=== PATIENT | female | born 1975 | race Hispanic/Latino ===

== ENCOUNTER 2018-02-12 12:22 | Outpatient (CLI) | payer BC | END 2018-02-12 12:23 | disposition home or self-care (01) | LOC: BICULT 12:22 | PROVIDERS: ATTEND Family Medicine | DX: A68.9 Relapsing fever, unspecified (principal) | CPT/HCPCS: 76770 ==

== ENCOUNTER 2018-04-07 13:06 | Outpatient (CLI) | payer BC | END 2018-04-07 13:07 | disposition home or self-care (01) | LOC: BICMAMMO 13:06 | PROVIDERS: ATTEND Obstetrics & Gynecology | DX: R92.2 Inconclusive mammogram (principal); N63.20 Unspecified lump in the left breast, unspecified quadrant | CPT/HCPCS: G0279 ==

== ENCOUNTER 2018-09-16 15:32 | Outpatient (CLI) | payer BC ==
--- NOTE | 2018-09-16 17:09 | MRI ---
MRI LUMBAR SPINE NONCONTRAST: 09/16/18 HISTORY: Low back pain. Left leg radiculopathy. FINDINGS: Vertebral body height and alignment are maintained. The conus medullaris has a normal appearance. Zoe tebral body heights and alignment are maintained. There is desiccation of the lowest two intervertebr al discs. T12-L1, L1-2, L2-3, and L3-4: Mild osteophytosis. Central canal and neural foramina are patent. L4-5: Mild posterior disc bulge with focal annular fissure posteriorly. Minimal effacement of the the don sac. Central canal and neural foraminal remain patent. L5-S1: Disc space narrowing. Very mild posterior disc bulge. Osteophytosis of the facets. Moderate ri ght and mild left foraminal stenoses. IMPRESSION: Posterior annular fissure within the L4-5 disc. Mild degenerative changes of the lower two levels, including foraminal stenoses bilaterally at the jessica mbosacral junction, right greater than left. Clinical correlation regarding the right L5 dermatome is required. POS: [facility]
== END 2018-09-16 15:33 | disposition home or self-care (01) ==
LOC: BICMRI 15:32
PROVIDERS: ATTEND Specialist
DX: M51.16 Intervertebral disc disorders with radiculopathy, lumbar region (principal); M47.26 Other spondylosis with radiculopathy, lumbar region; M48.061 Spinal stenosis, lumbar region without neurogenic claudication; M48.07 Spinal stenosis, lumbosacral region
CPT/HCPCS: 72148

== ENCOUNTER 2018-10-01 01:41 | Observation (INO) | payer BC ==
[2018-10-01 02:13] LABS: #Basophils 0.1 thou/uL (0.0-0.2); #Eosinphils 0.5 thou/uL (0.0-0.7); #Lymphocytes 2.8 thou/uL (1.20-3.40); #Monocytes 0.7 thou/uL (0.11-0.59); %Eosinophils 3.7 % (0.0-10.0); %Lymphocytes 21.1 % (21.0-51.0); %Monocytes 5.6 % (0.0-10.0); %Neutrophils 68.6 % (42.0-75.0); Hemoglobin 13.9 g/dL (12.0-16.0); Mean Corpuscular HGB CONC 33.7 g/dL (32.0-36.0); Mean Corpuscular Hemoglobin 29.7 pg (27.0-31.0); Mean Platelet Volume 7.2 fL (7.4-10.4); Platelet Count 265 thou/uL (130-400); RBC Distribution Width 13.2 % (11.5-14.5); White Blood Cell (WBC) Count 13.2 thou/uL (4.8-10.8)
[2018-10-01] MEDS ORDERED: Ketorolac Tromethamine 30 MG/ML VIAL ONE (02:20)
[2018-10-01 02:25] LABS: ALT (SGPT) 26 U/L (8-55); AST (SGOT) 18 U/L (5-34); Albumin 4.2 g/dL (3.5-5.0); Alkaline Phosphatase 98 U/L (40-150); Anion Gap 13 mmol/L (10-20); BUN (Urea Nitrogen) 14 mg/dL (7.0-18.7); Bilirubin, Total 0.2 mg/dL (0.2-1.2); Calc. Creatinine Clearance 0 mL/min (70-130); Calcium 9.5 mg/dL (7.8-10.44); Carbon Dioxide 27 mmol/L (22-29); Chloride 101 mmol/L (98-107); Estimated GFR-MDRD Greater than 90; Globulin 3.2 g/dL (2.4-3.5); Glucose 128 mg/dL (70-105); Lipase 55 U/L (8-78); Potassium 3.9 mmol/L (3.5-5.1); Protein, Total 7.4 g/dL (6.0-8.3); Sodium 137 mmol/L (136-145)
[2018-10-01 02:26] LABS: Bilirubin Negative (Negative); Blood, Urine Large (Negative); Clarity Clear (Clear); Glucose, Urine (Dipstick) Negative (Negative); Leukocyte Negative (Negative); Nitrite Negative (Negative); Protein, Urine (Dipstick) 100 mg/dL (Neg-Trace); Urobilinogen 0.2 mg/dL (0.2-1.0)
[2018-10-01 02:27] LABS: Pregnancy Test - Urine (BHCG) Negative (Negative); Pregu Control Background? CLEAR/WHITE (CLR/WHITE); Pregu Control Bar Appear? YES (CONTROL BAR); Specific Gravity 1.026 (1.002-1.036); Specific Gravity, Urine 1.026 (1.002-1.036)
[2018-10-01 02:30] LABS: Bacteria/HPF 2+ HPF (None Seen); Hyaline Casts/LPF 0-3 HYALINE CAST LPF (0-3 Hyaline); WBC/HPF 0-3 HPF (0-3)
[2018-10-01] MEDS ORDERED: Morphine 4 MG/ML VIAL ONE ×2 (03:05→04:38)
[2018-10-01] MEDS ORDERED: Sodium Chloride 0.9% 10 ML ONE ×2 (05:11→17:41)
[2018-10-01 05:19] VITALS: BMI 32.5
[2018-10-01] MEDS ORDERED: Ondansetron PF 4 MG/2 ML Vial IVP PRN (05:27)
[2018-10-01] MEDS ORDERED: Ondansetron ODT 4 MG TAB SL PRN (05:27)
[2018-10-01] MEDS ORDERED: Morphine 4 MG/ML VIAL SLOW IVP PRN (05:29)
[2018-10-01] MEDS: Sodium Chloride 0.9% 1,000 ML IV SCH ×2 (06:40→14:12)
--- NOTE | 2018-10-01 07:39 | CON ---
DATE OF CONSULTATION: 10/01/2018 REASON FOR CONSULTATION: Right ureteral stone. HISTORY OF PRESENT ILLNESS: Ms. Turner is a 43-year-old female patient of Dr. Alexander Molina. She has a history of urolithiasis requiring ureteroscopy with laser lithotripsy and stent placement in 2017. The patient is followed by Dr. Molina and saw him last approximately 4 months ago. Last night, she presented to the [facility] Emergency Department with acute onset of right-sided flank pain associated with nausea. The patient has had no fever or dysuria. A CT of the abdomen and pelvis was performed, which demonstrated a 12 mm proximal right ureteral calculus with significant hydroureteronephrosis. The patient's pain was poorly controlled and therefore, she was admitted to [facility] in [place]. Since then, the patient's pain has been better controlled. She has been n.p.o. No fever or chills. No other complaints at this time. REVIEW OF SYSTEMS: Full 12-point review of systems was performed and is negative other than that mentioned in HPI. PAST MEDICAL HISTORY: Urolithiasis, type 2 diabetes mellitus on metformin. PAST SURGICAL HISTORY: 1. . 2. Ureteroscopy with laser lithotripsy. 3. Laparoscopic cholecystectomy. ALLERGIES: COMPAZINE CAUSES VOMITING AND HIVES, AND PROCHLORPERAZINE AND SULFA, REACTION IS NAUSEA. SOCIAL HISTORY: No alcohol, tobacco, or drug use. FAMILY HISTORY: Noncontributory. CURRENT MEDICATIONS: Include metformin, Synthroid, and Effexor. PHYSICAL EXAMINATION: VITAL SIGNS: Blood pressure 122/72, pulse 82, respirations 17, temperature 97.1, oxygen saturation 99% on room air. GENERAL: She is alert and oriented x3, in no apparent distress. HEENT: Normocephalic and atraumatic. NECK: Supple. No masses or lymphadenopathy. CARDIOVASCULAR: Regular rate and rhythm. PULMONARY: Breathing unlabored. No wheezing. ABDOMEN: Soft, nontender/nondistended. No masses or organomegaly. No suprapubic tenderness to palpation. Mild right CVA tenderness. No left CVA tenderness. EXTREMITIES: Warm, well perfused. No edema. NEUROLOGIC: Alert and oriented x3, in no focal deficits. RADIOLOGY DATA: CT of the abdomen and pelvis was reviewed. See report for details. There is a 12 mm stone within the proximal right ureter and significant right hydroureteronephrosis down to the level of the stone. There was no other stone identified. LABORATORY DATA: White blood cell count 13.2, hemoglobin 13.9, hematocrit 41.4, and platelets 265. Chemistry; sodium 137, potassium 3.9, chloride 101, bicarb 27, BUN 14, creatinine 0.71, and glucose 128. ASSESSMENT: A 43-year-old female with right hydroureteronephrosis secondary to an obstructing 12 mm right proximal ureteral calculus with intractable pain. PLAN: I reviewed the natural history and clinical implications of ureteral stones with the patient in detail. I discussed the minimal chance of spontaneous passage of a stone by size. Currently, the patient's pain is better controlled. However, I explained the intervention would likely be necessary. I discussed options with the patient including right ureteral stent placement today and staged right extracorporeal shock wave lithotripsy versus right ureteroscopy with laser lithotripsy. I will discuss this with Dr. Molina as well given the fact that this is his active patient in all likelihood, right ureteral stent placement will be performed today by either myself or Dr. Molina and there will be staged definitive management of the stone in the future. Job ID: [id number]
[2018-10-01 08:40] LABS: Platelet Count 277 thou/uL (130-400)
[2018-10-01] MEDS ORDERED: CEFAZOLIN 2 GM in Premix Bag 1 BAG IVPB SCH (09:30)
--- NOTE | 2018-10-01 09:57 | CT ---
PRELIMINARY REPORT/[facility]/EMERGENTY AFTER-HOURS PROCEDURE CT Abdomen and Pelvis Without Contrast EXAM DATE/TIME: 10/01/2018 2:43 AM CLINICAL HISTORY: 43 years old, female; Pain; Abdominal pain; Prior surgery; Surgery date: 6+ months; Surgery type: Cho le; Patient HX: Right flank pain started at 2100 last night, denies n/v/d. H/o kidney stones. Surgica l history of cholecystectomy, TECHNIQUE: Axial computed tomography images of the abdomen and pelvis without contrast. Coronal reformatted images were created and reviewed. COMPARISON: No relevant prior studies available. FINDINGS: Lower thorax: No acute findings. ABDOMEN: Liver: Normal. No mass. Gallbladder and bile ducts: Prior cholecystectomy. Pancreas: Normal. No ductal dilation. Spleen: Normal. No splenomegaly. Adrenals: Normal. No mass. Kidneys and ureters: 1.2 cm obstructing stone in the proximal right ureter causing moderate obstructi ve uropathy. Nonobstructive nephrolithiasis left kidney. Stomach and bowel: No bowel wall thickening or intestinal obstruction. Appendix: Normal appendix. PELVIS: Bladder: Unremarkable as visualized. Reproductive: 2.9 cm right ovarian cyst. ABDOMEN and PELVIS: Intraperitoneal space: Normal. No free air. No significant fluid collection. Bones/joints: No acute fracture. No dislocation. Soft tissues: Unremarkable. Vasculature: Normal. No abdominal aortic aneurysm. Lymph nodes: Normal. No enlarged lymph nodes. IMPRESSION: 1. 1.2 cm obstructing stone in the proximal right ureter causing moderate obstructive uropathy. 2. 2.9 cm right ovarian cyst. Thank you for allowing us to participate in the care of your patient. Dictated and Authenticated by: Carloz Sr MD 10/01/2018 3:25 AM Central Time ([place] & [place]) FINAL REPORT CT ABDOMEN AND PELVIS NONCONTRAST: DATE: 10/01/2018. TIME: Performed on an emergency basis at 0245 hours. HISTORY: Right flank pain. FINDINGS: Agree with the preliminary report by Dr. Sr from [facility]. High-grade obstruction at a 1.2 cm proximal right ureteral calculus. Dominant right ovarian follicles. Lack of contrast limits evaluation for other abnormalities. Gallbladder is surgically absent. POS: [facility]
[2018-10-01] MEDS ORDERED: Fentanyl 100 MCG/2 ML VIAL ONE ×3 (10:54→13:48)
[2018-10-01] MEDS ORDERED: Midazolam HCl 2 mg/2 ml Vial ONE (10:54)
[2018-10-01] MEDS ORDERED: Iothalamate Meglumine 60% 50 ML VIAL FS ONE (12:10)
[2018-10-01] MEDS ORDERED: Ondansetron HCl/PF 4 MG/2 ML Vial IVP PRN (13:06)
[2018-10-01] MEDS ORDERED: Promethazine HCl 25 MG/ML VIAL IM PRN (13:06)
[2018-10-01] MEDS ORDERED: Promethazine HCl 25 MG/ML VIAL SLOW IVP PRN ×2 (13:06→16:04)
[2018-10-01] MEDS ORDERED: Ondansetron PF 4 MG/2 ML Vial ONE (14:13)
[2018-10-01] MEDS ORDERED: Lidocaine 1% PF 5 ML VIAL ONE (16:00)
[2018-10-01] MEDS ORDERED: PROPOFOL 200 MG/20 ML VIAL ONE (16:00)
[2018-10-01] MEDS ORDERED: PHENYLEPHRINE-NS 100 MCG/ML 10 ML SYRINGE ONE (16:00)
[2018-10-01] MEDS ORDERED: Succinylcholine Chloride 20 MG/ML 10 ml SYRINGE FS ONE (16:00)
[2018-10-01] MEDS ORDERED: [UNRECOGNIZED DRUG - REMARK] FS SCH (16:15)
--- NOTE | 2018-10-01 16:33 | ULT ---
RENAL ULTRASOUND BILATERAL WITH BRITO SCALE AND DOPPLER COLOR FLOW IMAGING 10/01/18 CLINICAL HISTORY: Shockwave lithotripsy procedure, followup. FINDINGS: There is no hydronephrosis of either kidney. Renal lengths are symmetric, 11.5 cm on the left and 12 cm on the right. No discrete renal parenchymal lesion. No shadowing nephrolithiasis is seen. Urinary bladder is decompressed limiting assessment. IMPRESSION: No overt hydronephrosis of either kidney. POS: [facility]
--- NOTE | 2018-10-01 17:00 | OP ---
DATE OF PROCEDURE: 10/01/2018 PREOPERATIVE DIAGNOSIS: Right proximal ureteral stone. POSTOPERATIVE DIAGNOSIS: Right proximal ureteral stone. PROCEDURE PERFORMED: Right extracorporeal shock wave lithotripsy, cysto, right stent. ANESTHETIC: General. ESTIMATED BLOOD LOSS: Minimal. FINDINGS: There was a 12 mm proximal right ureteral stone that was treated with 2500 shocks at a maximum kV level of 5 and majority of it at level 4. It did appear to fragment and change and actually when we did this cystoscopic procedure, we saw fragments already coming down into the bladder. She had a stent placed, 4.8 x 24 cm. There was still sizable remaining stone fragment at the ESWL site, which was very difficult to manipulate around. We had to use an angled Glidewire and was with some difficulty and she did have a small ureteral perforation at this site that will be managed currently with the stent indwelling. DESCRIPTION OF PROCEDURE: After obtaining written and verbal consent from the patient and after receiving IV antibiotics, she was taken to the operating suite. She was placed in the supine position on the treatment table. PlexiPulses were placed on her lower extremities and turned on. She was given a general anesthetic and oral obturator intubation. She was coupled to the lithotripsy unit. The stone was easily seen. The stone was placed in treatment focal point and shockwave therapy was commenced at a very low KUB at rate of 60. After couple of 100 shocks, a few minute pause was given. We then restarted ESWL going up to level 4. We stayed at level 4 to a couple of 1000 shocks were done and then we alternated between level 4 and 5 for the remaining 500. The stone did appear to change its configuration. She was then placed in dorsal lithotomy position, sterilely prepped and draped. Cystoscopy was performed with a 22-German sheath. This was well lubricated and passed under direct vision through the female urethra into the urinary bladder. There were some small stone fragments already exiting out, some blood in the bladder, this was rinsed out. A 5-German Pollack catheter was flushed with contrast and placed up the right ureter to just below the level of stone and contrast was injected. We could get contrast to go by the stone and the ureter was dilated above it. There was a lot of small fragments that appeared to migrate proximal when we injected the contrast, but there is still a stone fragment sitting right at this region. I could not get a guidewire by it. We brought in a straight Glidewire and felt like we gotten this by it but when shooting some contrast, saw that there was extravasation at the site where the stone was. Then, we re-tried with an angled Glidewire and we were able to manipulate this by the stone and then placed the open-ended catheter by the stone up into the dilated renal pelvis and drained the contrast from this. We then injected more contrast to fill out the upper collecting system, replaced a 0.038 guidewire through the open-ended catheter, then brought in a 4.8 double-J stent and placed it over the guidewire, pushing up into place with an aid of a pusher, so its proximal end coiled in the renal pelvis and its distal end coiled in the bladder when the wire was removed. The string was not left attached to it, it was a 24 cm stent. The bladder was drained and the instruments were removed. She was taken out of the dorsal lithotomy position. She was awakened, extubated, and taken by stretcher to the recovery room. We will plan on leaving the stent in for at least a couple of weeks and depending on whether she requires further treatment or not for the stone, but with the ureteral injury, she will need to be left in until the stone has gone and until good evidence of this is no longer an issue for her. Job ID: [id number]
[2018-10-01] MEDS ORDERED: Ondansetron ODT 4 MG TAB PO PRN (19:58)
[2018-10-01] MEDS ORDERED: Magnesium Citrate 300 ML BOT PO SCH (20:00)
--- NOTE | 2018-10-02 01:27 | CON ---
DATE OF CONSULTATION: 10/01/2018 REASON FOR CONSULTATION: Medical management. HISTORY OF PRESENT ILLNESS: This is a 43-year-old female patient with type 2 diabetes, hypothyroidism, depression and anxiety with history of kidney stones in the past, who presented to the emergency department yesterday with complaints of abdominal pain. CT of the abdomen was done, which revealed a large obstructing kidney stone in the order of 1.2 cm. She has had recurrent fever on and off for the past year with no origin. She was seen by Urology, who recommended lithotripsy and stent placement due to the size of her stone and the obstructing nature of it. She underwent the surgery with no complications by Dr. Molina and Dr. Jamison. Postoperative renal ultrasound showed no obstruction and no hydronephrosis. She continues to have pain from the stent and she has had constipation with no bowel movement for the past 2 days, as well as persistent nausea and vomiting. She is admitted overnight for observation. PAST MEDICAL HISTORY: History of nephrolithiasis, type 2 diabetes, hypertension, hyperlipidemia, hypothyroidism, depression, and anxiety. MEDICATIONS: Include: 1. Effexor daily. 2. Levothyroxine 75 mcg daily. 3. Metformin 1000 mg daily. PAST SURGICAL HISTORY: , ureteroscopy with laser lithotripsy, laparoscopic cholecystectomy. ALLERGIES: COMPAZINE AND SULFA. SOCIAL HISTORY: She is with children. No alcohol. No tobacco. No drug use. FAMILY HISTORY: Noncontributory. REVIEW OF SYSTEMS: GENERAL: As per the history of present illness, she denies any recent fevers or chills. HEENT: Denies headache, vision or hearing changes. CARDIAC: Denies chest pain or shortness of breath. PULMONARY: Denies cough or hemoptysis. GI: As per the history of present illness. No melena or hematochezia. : Denies dysuria or hematuria. NEUROLOGIC: No weakness, seizures, or syncope. PHYSICAL EXAMINATION: VITAL SIGNS: Temperature 98.5, pulse of 98, respirations 16, blood pressure 131/82, pulse ox 97% on room air. GENERAL: She is awake and alert. No acute distress. She appears uncomfortable. Mucosa is moist. NECK: Supple. HEART: Regular rate and rhythm. LUNGS: Clear. ABDOMEN: Diffusely tender. No rebound or guarding. EXTREMITIES: With no edema. LABORATORY DATA: White blood cell count 13,200, hemoglobin and hematocrit are 13.9 and 41.4, platelets of 262. Sodium 137, potassium 3.9, chloride 101, CO2 of 27, BUN and creatinine are 14 and 0.71 with a GFR of greater than 90. Serum glucose of 128, calcium of 9.5, AST and ALT are normal. Lipase of 55. Again, CT of the abdomen and pelvis revealed a 12 mm obstructing stone from last night. ASSESSMENT AND PLAN: 1. This is a 43-year-old female with a history of nephrolithiasis in the past, now status post obstructing 12 mm ureteral stone. She is now status post right extracorporeal shockwave lithotripsy with cystoscopy and right stent by Dr. Molina, which she tolerated well. Further plan per Urology. 2. Type 2 diabetes. We will restart metformin in the morning and continue Accu-Cheks through the night. 3. Bowel regimen. We will give a dose of mag citrate tonight and continue Colace daily as long as she is on narcotic pain medicines, Mag citrate p.r.n., increase water intake. 4. Anxiety and depression. We will restart her Effexor in the morning to prevent withdrawal symptoms. Job ID: [id number]
[2018-10-02] MEDS ORDERED: Levothyroxine Sodium 75 MCG TAB PO SCH (06:00)
[2018-10-02] MEDS ORDERED: metFORMIN 500 MG TAB PO SCH (08:00)
[2018-10-02] MEDS ORDERED: Venlafaxine XR 37.5 MG CAP PO SCH (09:00)
[2018-10-02] MEDS ORDERED: Docusate 100 MG CAP PO SCH (09:00)
[2018-10-02] MEDS ORDERED: Venlafaxine HCl XR 75 MG CAP PO SCH (09:00)
[2018-10-02] MEDS ORDERED: Polyethylene Glycol 3350 17 GM Packet PO PRN (09:59)
[2018-10-02] MEDS ORDERED: Acetaminophen/Codeine 30-300mg Tablet PO PRN (09:59)
[2018-10-02] MEDS ORDERED: CEFAZOLIN 2 GM in Premix Bag 1 BAG IVPB SCH (10:00)
[2018-10-02 11:04] LABS: Free T4 (Free Thyroxine) 1.36 ng/dL (0.70-1.48); Thyroid Stimulating Hormone 1.3478 uIU/mL (0.35-4.94)
[2018-10-02 12:02] VITALS: BP 123/80; TEMP 98.8
--- NOTE | 2018-10-02 14:17 | PRG ---
DATE OF SERVICE: 10/02/2018 SUBJECTIVE: The patient states she is feeling much better today. She has no flank pain. She is still having hematuria. She has some urgency and frequency. She denies any fevers or severe uncontrolled pain. OBJECTIVE: VITAL SIGNS: Temperature 98, pulse 93, respirations 18, blood pressure 123/80, and saturation 95% on room air. GENERAL: No apparent distress, communicating, and alert. CARDIOVASCULAR: Regular rate and rhythm. ABDOMEN: Soft, nontender, nondistended. Positive bowel sounds. EXTREMITIES: No clubbing, cyanosis, or edema. LABORATORY DATA: There are no new labs to review today. ASSESSMENT AND PLAN: A 43-year-old female, status post extracorporeal shock wave lithotripsy on the right with subsequent stent placement. She appears to be doing very well and I think she can be discharged home today. She can follow up with Dr. Molina as an outpatient for stent removal and subsequent followup to ensure that all stone fragments have cleared. I have gone over discharge instructions with her including care of her stent and avoiding significant postoperative pain or bleeding. Job ID: [id number]
--- NOTE | 2018-10-02 15:53 | PRG ---
DATE OF SERVICE: 10/02/2018 HISTORY OF PRESENT ILLNESS: The patient successfully underwent destruction of renal calculi with reported small tear in the ureter. Currently with stent placement by Dr. Alexander Molina, was given Ancef, was noted to have low colony-forming unit E coli on urine culture. After speaking with Dr. Alexander Kay, reported a desire for an additional unit of Ancef and will follow up in clinic. The patient was noted to have sulfa allergy. The patient's diabetes mellitus is controlled currently on home metformin. The patient has struggled with constipation over the last 6 months, has been stable on thyroid medication during this time, mood medication. The patient has not fully responded to intermittent attempts to relieve constipation. During hospital stay, has received magnesium citrate, MiraLAX, docusate sodium, had bowel movement within the last 2 days. Denies any significant left lower quadrant tenderness following procedure and bowel movement. PHYSICAL EXAMINATION: VITAL SIGNS: Temperature 98.8, pulse of 93, respiratory rate of 18, oxygen saturations 95% on room air, and blood pressure 123/80. Sensitivities pending for E coli on urine. GENERAL: The patient is alert and oriented. No acute distress. HEENT: Head is normocephalic and atraumatic. Extraocular movements are intact. Sclerae are white. Oral mucosa is moist. NECK: Supple. HEART: Regular rate and rhythm. No murmurs are auscultated. LUNGS: Clear to auscultation bilaterally. No rubs or wheezes. ABDOMEN: Soft, nontender. Positive bowel sounds throughout. EXTREMITIES: Lower extremities without cyanosis or edema. NEUROLOGIC: The patient is alert and oriented x3. No focal deficits. Speech is normal. The patient is anxious with slight lability in emotions, tearful at times, and anxious. ASSESSMENT AND PLAN: Renal calculi; urinary tract infection; chronic constipation; diabetes, type 2; hypothyroidism; depression and anxiety. Continue current medications. Gave reassurance regarding continued stent, we will hope repair of ureteral tear. Follow up with Urology, Dr. Molina on outpatient basis. Covering with Tylenol No. 3 for postoperative pain along with Senokot-S while on any narcotics. Discussed MiraLAX and Metamucil for more chronic basis over the next several months for constipation relief. Spot check thyroid, which was in acceptable limits. Follow up with the patient's PCP, Dr. Ck Camp upon discharge. Continue home medications for diabetes including metformin. Job ID: [id number]
[2018-10-02] MEDS ORDERED: Senokot S 8.6-50 MG TAB PO SCH (21:00)
--- NOTE | 2018-10-04 09:33 | DIS ---
DATE OF ADMISSION: 10/01/2018 DATE OF DISCHARGE: 10/02/2018 SHORT-STAY DISCHARGE SUMMARY: ADMITTING PHYSICIAN: Dr. Molina. ADMITTING DIAGNOSIS: Right proximal ureteral stone. DISCHARGE DIAGNOSIS: Right proximal ureteral stone. PROCEDURE PERFORMED: While inpatient; right extracorporeal shock wave lithotripsy with cystoscopy and right ureteral stent placement. BRIEF HISTORY: The patient is a 43-year-old female, who presented with a right-sided stone, measuring 12 mm. She is being brought in for shockwave lithotripsy and pain control. Full H and P can be found in the [facility] system. HOSPITAL COURSE: The patient underwent a successful shock wave lithotripsy (please see operative note for details). Postoperatively, she did have a lot of pain and requested to stay in the hospital overnight. She did very well overnight and her pain subsequently resolved. She is feeling much better and has requested to be discharged home. DISPOSITION: Discharged to home. DISCHARGE CONDITION: Good. DISCHARGE MEDICATIONS: Please see MAR. DISCHARGE INSTRUCTIONS: Include no heavy lifting or strenuous activity with the stent in. Stay adequately hydrated and expect intermittent hematuria. Followup will be with Dr. Molina for stent removal in approximately a week or so, which she will contact and arrange as an outpatient. Job ID: [id number]
== END 2018-10-02 14:21 | disposition home or self-care (01) ==
LOC: SCSER 01:41 → 3SE 04:36 → SJJU 18:11
PROVIDERS: ADMIT Urology; ATTEND Urology
PROC: 0TF6XZZ Fragmentation in Right Ureter, External Approach (ICD-10-PCS; principal; 2018-10-01)
PROC: 0T768DZ Dilation of Right Ureter with Intraluminal Device, Via Natural or Artificial Opening Endoscopic (ICD-10-PCS; 2018-10-01)
DX: N20.1 Calculus of ureter (principal); N39.0 Urinary tract infection, site not specified; B96.20 Unspecified Escherichia coli [E. coli] as the cause of diseases classified elsewhere; E11.9 Type 2 diabetes mellitus without complications; I10 Essential (primary) hypertension; E78.5 Hyperlipidemia, unspecified; E03.9 Hypothyroidism, unspecified; F41.8 Other specified anxiety disorders; K59.09 Other constipation; Z79.84 Long term (current) use of oral hypoglycemic drugs; Z79.899 Other long term (current) drug therapy; Z88.2 Allergy status to sulfonamides; Z88.8 Allergy status to other drugs, medicaments and biological substances
CPT/HCPCS: 36415; 36416; 74176; 76770; 80053; 81003; 81015; 81025; 83690; 84439; 84443; 84481; 85025; 85576; 87077; 87086; 87186; 90471; 90686; 96361; 96365; 96374; 96375; 96376; C1758; C1769; G0008; G0378; J1885; J2001; J2250; J2270; J2405; J2550; J2704; J3010; Q0162; Q9961

== ENCOUNTER 2018-10-20 07:07 | Day surgery (SDC) | payer BC ==
[2018-10-19 13:20] VITALS: BMI 32.5
--- NOTE | 2018-10-20 08:58 | RAD ---
SUPINE ABDOMEN: Indications: Pre-operative evaluation. Comparison: 10-18-18 FINDINGS: Double pigtail right ureteral stent remains in place. The calculus adjacent to the proximal stent reg ion of the renal pelvis is unchanged in position when compared to 10-18-18. Bowel gas pattern is unremarkable. IMPRESSION: No change in position of the calculus overlying the region of the right UPJ or proximal right ureter when compared to exam of 10-18-18. POS: [facility]
[2018-10-20] MEDS ORDERED: Midazolam HCl 2 mg/2 ml Vial ONE (09:43)
[2018-10-20] MEDS ORDERED: ceFAZolin Sodium 2 GM/100 ML BAG ONE (09:43)
[2018-10-20] MEDS ORDERED: Famotidine/PF 20 mg/2ml Vial ONE (09:45)
[2018-10-20] MEDS ORDERED: Fentanyl 100 MCG/2 ML VIAL ONE (09:45)
[2018-10-20] MEDS ORDERED: Promethazine HCl 25 MG/ML VIAL ONE (11:10)
--- NOTE | 2018-10-20 11:34 | OP ---
DATE OF PROCEDURE: 10/20/2018 PREOPERATIVE DIAGNOSIS: Right proximal ureteral stone. PROCEDURE PERFORMED: Right extracorporeal shock wave lithotripsy. ANESTHETIC: General. ESTIMATED BLOOD LOSS: Not recorded. FINDINGS: Stone fragments in the proximal right ureter probably large size measuring 1.5 cm. These were treated with 2500 shocks at level 5 and level 6. A stent was already in place. This was not removed or replaced, but was left in. OPERATIVE TECHNIQUE: Obtained written and verbal consent from the patient after receiving some IV Ancef. She was taken to the operating suite. She was placed in supine position on the treatment table. PlexiPulses were placed on her lower extremities and turned on. She was given a general anesthetic and oral obturator intubation. She was coupled to the lithotripsy unit. The stone was placed in treatment focal point and shockwave therapy was commenced. After couple of 100 shocks, a 5 minute pause was given. We then increased the kV to 4 and then to 5 and for the last 1000 shocks went between level 5 and level 6. 50 to 100 shocks, going back and forth until we had completed 2500. The stone did appear to spread out. It did appear to smudge on the edges suggesting it did fragment. It was in about three pieces when we started the procedure from a prior shock wave. After 2500 shocks, the procedure was terminated. She was awakened, extubated, taken by hanna to recovery room. Job ID: [id number]
[2018-10-20] MEDS ORDERED: PROPOFOL 200 MG/20 ML VIAL ONE (15:13)
[2018-10-20] MEDS ORDERED: Ketorolac Tromethamine 30 MG/ML VIAL ONE (15:13)
[2018-10-20] MEDS ORDERED: Ondansetron PF 4 MG/2 ML Vial ONE (15:13)
[2018-10-20] MEDS ORDERED: Lidocaine 1% PF 5 ML VIAL ONE (15:13)
[2018-10-20] MEDS ORDERED: Metoclopramide HCl 10 MG/2 ML VIAL ONE (15:13)
== END 2018-10-20 13:10 | disposition home or self-care (01) ==
LOC: SDC 07:07
PROVIDERS: ATTEND Urology
PROC: 0TF6XZZ Fragmentation in Right Ureter, External Approach (ICD-10-PCS; principal; 2018-10-20)
DX: N20.1 Calculus of ureter (principal); E03.9 Hypothyroidism, unspecified; E11.9 Type 2 diabetes mellitus without complications; Z88.2 Allergy status to sulfonamides; Z88.8 Allergy status to other drugs, medicaments and biological substances; Z79.2 Long term (current) use of antibiotics; Z79.84 Long term (current) use of oral hypoglycemic drugs; Z79.899 Other long term (current) drug therapy; Z98.890 Other specified postprocedural states
CPT/HCPCS: 74018; J0131; J0690; J1885; J2001; J2250; J2405; J2550; J2704; J2765; J3010; S0028

== ENCOUNTER 2019-02-05 01:08 | Emergency (ER) | payer BC ==
[2019-02-05] MEDS ORDERED: Loperamide HCl 2 MG CAP ONE ×2 (01:38→01:54)
[2019-02-05] MEDS ORDERED: Ondansetron PF 4 MG/2 ML Vial ONE (01:38)
[2019-02-05] MEDS ORDERED: Ketorolac Tromethamine 30 MG/ML VIAL ONE (01:38)
[2019-02-05 02:12] LABS: #Basophils 0.1 thou/uL (0.0-0.2); #Eosinphils 0.2 thou/uL (0.0-0.7); #Lymphocytes 1.4 thou/uL (1.20-3.40); #Monocytes 0.4 thou/uL (0.11-0.59); #Neutrophils 11.5 thou/uL (1.40-6.50); %Eosinophils 1.3 % (0.0-10.0); %Lymphocytes 10.5 % (21.0-51.0); %Monocytes 3.2 % (0.0-10.0); %Neutrophils 83.9 % (42.0-75.0); BHCG - Serum Negative (NEGATIVE); Hemoglobin 15.5 g/dL (12.0-16.0); Mean Corpuscular HGB CONC 34.6 g/dL (32.0-36.0); Mean Corpuscular Hemoglobin 28.9 pg (27.0-31.0); Mean Corpuscular Volume 83.6 fL (78.0-98.0); Mean Platelet Volume 5.2 fL (7.4-10.4); Platelet Count 249 thou/uL (130-400); Pregs Control Background? CLEAR/WHITE (CLR/WHITE); Pregs Control Bar Appear? YES (CONTROL BAR); RBC Distribution Width 14.3 % (11.5-14.5); Red Blood Cell (RBC) Count 5.35 mill/uL (4.20-5.40); White Blood Cell (WBC) Count 13.7 thou/uL (4.8-10.8)
[2019-02-05 03:18] LABS: ALT (SGPT) 35 U/L (8-55); AST (SGOT) 33 U/L (5-34); Albumin 4.5 g/dL (3.5-5.0); Alkaline Phosphatase 95 U/L (40-150); BUN (Urea Nitrogen) 16 mg/dL (7.0-18.7); Bilirubin, Total Less than 0.2 mg/dL (0.2-1.2); Calc. Creatinine Clearance 0 mL/min (70-130); Carbon Dioxide 18 mmol/L (22-29); Estimated GFR-MDRD Greater than 90; Globulin 3.5 g/dL (2.4-3.5); Glucose 219 mg/dL (70-105); Lipase 40 U/L (8-78)
[2019-02-05 03:37] LABS: Chloride 101 mmol/L (98-107); Potassium 3.8 mmol/L (3.5-5.1); Sodium 136 mmol/L (136-145)
[2019-02-05 03:38] LABS: Calcium 9.5 mg/dL (7.8-10.44)
[2019-02-05 03:40] LABS: Anion Gap 22 mmol/L (10-20)
[2019-02-05] MEDS ORDERED: Morphine 4 MG/ML VIAL ONE (04:26)
[2019-02-05 04:34] LABS: Bilirubin Negative (Negative); Blood, Urine Trace (Negative); Clarity Clear (Clear); Glucose, Urine (Dipstick) Negative (Negative); Leukocyte Negative (Negative); Nitrite Negative (Negative); Protein, Urine (Dipstick) Negative (Neg-Trace); Urobilinogen 0.2 mg/dL (0.2-1.0)
[2019-02-05 04:41] LABS: Bacteria/HPF 1+ HPF (None Seen); RBC/HPF 0-3 HPF (0-3); Squamous Epithelial 0-3 HPF (0-3); WBC/HPF 0-3 HPF (0-3)
[2019-02-05] MEDS ORDERED: Metoclopramide HCl 10 MG/2 ML VIAL ONE (05:02)
[2019-02-05 05:13] LABS: Anion Gap 17 mmol/L (10-20); BUN (Urea Nitrogen) 11 mg/dL (7.0-18.7); Calc. Creatinine Clearance 0 mL/min (70-130); Calcium 7.8 mg/dL (7.8-10.44); Carbon Dioxide 20 mmol/L (22-29); Chloride 111 mmol/L (98-107); Estimated GFR-MDRD Greater than 90; Glucose 145 mg/dL (70-105); Potassium 4.6 mmol/L (3.5-5.1); Sodium 143 mmol/L (136-145)
--- NOTE | 2019-02-05 09:38 | CT ---
PRELIMINARY REPORT/[facility]/EMERGENCY AFTER HOURS PROCEDURE: EXAM: CT Abdomen and Pelvis Without Contrast EXAM DATE/TIME: 02/05/2019 2:51 AM CLINICAL HISTORY: 43 years old, female; Nausea and vomiting; Abdominal pain; Generalized; Patient HX : N/v/d due to possible food poisoning. Hs of cheryl, renal stones, hs of litho four months ago due to 12mm right renal stone. TECHNIQUE: Imaging protocol: Axial computed tomography images of the abdomen and pelvis without cont rast. Coronal and sagittal reformatted images were created and reviewed. Radiation optimization: All CT scans at this facility use at least one of these dose optimization techniques: automated exposure control; mA and/or kV adjustment per patient size (includes targeted exams where dose is matched to c linical indication); or iterative reconstruction. COMPARISON: No relevant prior studies available. FINDINGS: Lungs: The lung bases are clear. Liver: Unremarkable. Gallbladder and bile ducts: Prior cholecystectomy, no significant biliary tree dilation. Pancreas: Unremarkable. Spleen: Unremarkable. Adrenals: Unremarkable. Kidneys and ureters: Right lower pole intrarenal calculus. Mild right hydronephrosis and hydroureter. There is a 5 x 7 mm mid to distal right ureteral calculus. The calculus lies at the level of S2. Left upper pole intrarenal calculus. Left kidney otherwise appears essentially unremarkable. Stomach and bowel: There are no CT findings to strongly suggest diverticulitis. Appendix: The appendix is probably identified, and there are no suspicious findings for appendicitis. No pericecal inflammatory changes are seen. Intraperitoneal space: No free air, ascites, or significant bowel distention. Vasculature: No evidence for abdominal aortic aneurysm. Lymph nodes: No retroperitoneal adenopathy. Bladder: Unremarkable as visualized. Reproductive: The left ovary probably contains a 17 mm dominant follicle versus very small cyst. Significance uncertain/unlikely due to relatively small size. No cul-de-sac fluid. Bones/joints: No significant acute finding. Soft tissues: No significant acute finding. IMPRESSION: 1. 5 x 7 mm mid to distal right ureteral calculus, see above details. 2. Mild right hydronephrosis and hydroureter. 3. Small intrarenal calculus bilaterally. 4. No free air or significant bowel distention. No evidence to suggest bowel obstruction. 5. No CT findings to suggest appendicitis. 6. The left ovary probably contains a 17 mm dominant follicle versus very small cyst. Significance un certain/unlikely due to relatively small size. No cul-de-sac fluid. 7. Other findings discussed above. Thank you for allowing us to participate in the care of your patient. Dictated and Authenticated by: Khalif Nixon MD 02/05/2019 4:25 AM Central Time ([place] & [place]) FINAL REPORT ABDOMEN CT WITHOUT CONTRAST PELVIC CT WITHOUT CONTRAST: Date: 02/05/19 HISTORY: Abdominal pain. Vomiting. History of urolithiasis. COMPARISON: 10/01/18. FINDINGS: Limited evaluation of solid organs due to technique. Grossly no solid organ abnormality. There is a n onobstructing 3 mm calculus in the right intrarenal collecting system. There is interval passage of a right ureteral calculus, now in the mid portion of the right ureter. Calculus measures 0.9 cm. Nonob structing punctate 1.0 mm calculus in the left intrarenal collecting system. Hypodensity associated with the left ovary measuring 2.0 cm, likely representing a dominant follicle. IMPRESSION: This report is in agreement with the preliminary report by [facility]. 1. Right-sided obstructive uropathy secondary to a calculus in the right ureter. 2. Dominant follicle in the left ovary. POS: OFF
== END 2019-02-05 05:29 | disposition home or self-care (01) ==
LOC: SCSER 01:08
DX: N13.2 Hydronephrosis with renal and ureteral calculous obstruction (principal); E86.0 Dehydration; E11.9 Type 2 diabetes mellitus without complications; E03.9 Hypothyroidism, unspecified; K58.9 Irritable bowel syndrome, unspecified; F32.9 Major depressive disorder, single episode, unspecified; Z79.84 Long term (current) use of oral hypoglycemic drugs; Z79.899 Other long term (current) drug therapy
CPT/HCPCS: 36415; 74176; 80053; 81003; 81015; 83605; 83690; 84703; 85025; 87086; 96361; 96365; 96375; J1885; J2270; J2405; J2765

== ENCOUNTER 2019-06-06 06:18 | Day surgery (SDC) | payer BC, OTHER ==
[2019-05-20 10:37] VITALS: BMI 32.9
[2019-06-06] MEDS ORDERED: Fentanyl 100 MCG/2 ML VIAL ONE ×2 (06:58→08:45)
[2019-06-06] MEDS ORDERED: Midazolam HCl 2 mg/2 ml Vial ONE (06:58)
[2019-06-06 07:03] LABS: #Basophils 0.1 thou/uL (0.0-0.2); #Eosinphils 0.6 thou/uL (0.0-0.7); #Lymphocytes 3.1 thou/uL (1.20-3.40); #Monocytes 0.6 thou/uL (0.11-0.59); #Neutrophils 6.2 thou/uL (1.40-6.50); %Basophils 0.7 % (0.0-1.0); %Lymphocytes 29.4 % (21.0-51.0); %Monocytes 5.3 % (0.0-10.0); %Neutrophils 58.6 % (42.0-75.0); Hemoglobin 13.9 g/dL (12.0-16.0); Mean Corpuscular HGB CONC 33.1 g/dL (32.0-36.0); Mean Corpuscular Hemoglobin 29.1 pg (27.0-31.0); Mean Corpuscular Volume 88.1 fL (78.0-98.0); Mean Platelet Volume 7.3 fL (7.4-10.4); Platelet Count 323 thou/uL (130-400); RBC Distribution Width 12.7 % (11.5-14.5); Red Blood Cell (RBC) Count 4.77 mill/uL (4.20-5.40); White Blood Cell (WBC) Count 10.5 thou/uL (4.8-10.8)
[2019-06-06] MEDS ORDERED: Iothalamate Meglumine 60% 50 ML VIAL FS ONE (07:12)
[2019-06-06 07:25] LABS: Anion Gap 14 mmol/L (10-20); BUN (Urea Nitrogen) 15 mg/dL (7.0-18.7); Calc. Creatinine Clearance 137 mL/min (70-130); Calcium 9.4 mg/dL (7.8-10.44); Carbon Dioxide 25 mmol/L (22-29); Chloride 101 mmol/L (98-107); Estimated GFR-MDRD Greater than 90; Glucose 135 mg/dL (70-105); Potassium 3.7 mmol/L (3.5-5.1); Sodium 136 mmol/L (136-145)
--- NOTE | 2019-06-06 07:59 | RAD ---
KUB: 06/06/2019 COMPARISON: 05/05/2019 HISTORY: Preoperative patient, history of right-sided ureteral calculus FINDINGS: Clips in the right upper quadrant suggest prior cholecystectomy. No upper abdominal calcifi cations are noted. The bowel gas pattern is nonobstructed. There is a calcification in the right hemipelvis measuring 7-8 mm in craniocaudal dimension. This has progressed distally slightly when compared to the prior examination, now projecting approximately 2-3 cm below the level of the right sacroiliac joint. IMPRESSION: 7-8 mm calcification within the right hemipelvis suggesting a distal right ureteral calcu bryan.
--- NOTE | 2019-06-06 11:01 | OP ---
DATE OF PROCEDURE: 06/06/2019 PREOPERATIVE DIAGNOSIS: Right distal ureteral stone. POSTOPERATIVE DIAGNOSIS: Right distal ureteral stone. PROCEDURES PERFORMED: Cystoscopy, right retrograde, and right stent. ANESTHETIC: General. EBL: Minimal. FINDINGS: There was an impacted 6 mm right lower third ureteral stone that was difficult to pass with a guidewire and was felt to be impacted. For this reason, ureteroscopy was not done. DRAINS PLACED: A 4.8 x 24 cm double-J stent without a string attached. INDICATIONS FOR SURGERY: This is a 44-year-old female, who has had asymptomatic right ureteral stone for a few weeks now and then, we had her set up to come in to have this procedure done and just in the last few days, she has been having a great deal of pain from it. Her KUB today shows that it has moved down probably 4 or 5 cm more, it was over the sacrum, so she is coming in now for ureteroscopy and stone lithotripsy and retrieval. DESCRIPTION OF PROCEDURE: Obtained written and verbal consent from the patient, after receiving IV Ancef, she was taken to the operating suite. She was placed in supine position on the treatment table. PlexiPulses were placed on her lower extremities and turned on. She was given a general anesthetic and oral obturator intubation, placed in the dorsal lithotomy position, sterilely prepped and draped. Cystoscopy was performed with a 22-Mauritanian sheath, this was well lubricated and passed under direct vision through the female urethra into the urinary bladder with the aid of a 30-degree lens and a video camera and monitor. The bladder was filled and emptied number of times. A 0.038 guidewire was placed inside of a Pollack catheter and placed into the right ureteral orifice and up to the level of the stent. The wire would not go by it. We then shot some contrast through this and got a little bit of contrast to go by it, but not that much. We then brought in both an angled and then a straight tipped Glidewire and we could not get the angle to go by and we shot some more contrast up. There was no extravasation and then, we were able to get the straight Glidewire by it. We then were able to push the five-Mauritanian [place] catheter over the wire, it was a little difficult getting by the stone also, but it did and then got up into the upper collecting system and we filled up the system, which was hydronephrotic. It was drained relatively clear urine. No evidence of infection at least. There were some blood in it. We then replaced through the open-ended catheter, a 0.038 guidewire and then brought in a 4.6 x 24 cm double-J stent, placed it over the guidewire, pushing up into place with aid of a pusher, so its proximal end coiled in the renal pelvis and its distal end coiled in the bladder when the wire was removed. The string about an inch long was left just on the end of the stent to help in retrieving it, but it was not coming out of the urethral meatus. I did not do ureteroscopy because the stone was impacted, we got the stents to end, but the ureter dilate and if she has not passed a stone in the next couple weeks, do ureteroscopy then. She was awakened, extubated, and taken by stretcher to the recovery room. Job ID: [id number]
== END 2019-06-06 10:24 | disposition home or self-care (01) ==
LOC: SDC 06:18
PROVIDERS: ATTEND Urology
PROC: 0T768DZ Dilation of Right Ureter with Intraluminal Device, Via Natural or Artificial Opening Endoscopic (ICD-10-PCS; principal; 2019-06-06)
PROC: BT1D1ZZ Fluoroscopy of Right Kidney, Ureter and Bladder using Low Osmolar Contrast (ICD-10-PCS; principal; 2019-06-06)
DX: N13.2 Hydronephrosis with renal and ureteral calculous obstruction (principal); Z88.2 Allergy status to sulfonamides; Z88.8 Allergy status to other drugs, medicaments and biological substances; Z79.899 Other long term (current) drug therapy
CPT/HCPCS: 74018; 76000; 80048; 85025; C1758; C1769; J0690; J2250; J3010

== ENCOUNTER 2019-06-20 10:54 | Day surgery (SDC) | payer BC, OTHER ==
[2019-06-17 12:04] VITALS: BMI 32.3
[2019-06-20] MEDS ORDERED: Ondansetron PF 4 MG/2 ML Vial ONE (11:03)
[2019-06-20] MEDS ORDERED: Dexamethasone 20 MG/5 ML VIAL ONE (11:03)
[2019-06-20] MEDS ORDERED: PROPOFOL 200 MG/20 ML VIAL ONE (11:03)
[2019-06-20] MEDS ORDERED: Iothalamate Meglumine 60% 50 ML VIAL FS ONE (11:23)
[2019-06-20 11:36] LABS: #Basophils 0.1 thou/uL (0.0-0.2); #Eosinphils 0.5 thou/uL (0.0-0.7); #Monocytes 0.5 thou/uL (0.11-0.59); #Neutrophils 7.1 thou/uL (1.40-6.50); %Basophils 0.7 % (0.0-1.0); %Eosinophils 4.8 % (0.0-10.0); %Lymphocytes 19.6 % (21.0-51.0); %Monocytes 4.6 % (0.0-10.0); %Neutrophils 70.3 % (42.0-75.0); Hemoglobin 13.7 g/dL (12.0-16.0); Mean Corpuscular HGB CONC 33.9 g/dL (32.0-36.0); Mean Corpuscular Hemoglobin 29.6 pg (27.0-31.0); Mean Corpuscular Volume 87.5 fL (78.0-98.0); Mean Platelet Volume 6.9 fL (7.4-10.4); Platelet Count 290 thou/uL (130-400); RBC Distribution Width 12.7 % (11.5-14.5); Red Blood Cell (RBC) Count 4.62 mill/uL (4.20-5.40); White Blood Cell (WBC) Count 10.2 thou/uL (4.8-10.8)
--- NOTE | 2019-06-20 11:48 | RAD ---
Radiograph abdomen one view: DATE: 06/20/2019 HISTORY: 44 year old female with urolithiasis, calculus of right ureter COMPARISON: 06/04/2019. FINDINGS: The 9 x 7 mm calculus in the distal right ureter, at the lower sacral level, is unchanged in position . There is a new right ureteral stent. Bowel gas pattern is normal. IMPRESSION: 1. New right ureteral stent. 2. No change in position of the 9 mm right distal ureteral calculus.
[2019-06-20] MEDS ORDERED: Fentanyl 250 MCG/5 ML VIAL ONE (12:21)
[2019-06-20 12:25] LABS: Anion Gap 14 mmol/L (10-20); BUN (Urea Nitrogen) 10 mg/dL (7.0-18.7); Calc. Creatinine Clearance 147 mL/min (70-130); Calcium 9.4 mg/dL (7.8-10.44); Carbon Dioxide 26 mmol/L (22-29); Chloride 102 mmol/L (98-107); Estimated GFR-MDRD Greater than 90; Glucose 136 mg/dL (70-105); Potassium 3.8 mmol/L (3.5-5.1); Sodium 138 mmol/L (136-145)
[2019-06-20] MEDS ORDERED: Midazolam HCl 2 mg/2 ml Vial ONE (12:31)
[2019-06-20] MEDS ORDERED: Fentanyl 100 MCG/2 ML VIAL ONE (14:53)
[2019-06-20] MEDS ORDERED: Morphine 2 MG/ML SYRINGE ONE (16:20)
--- NOTE | 2019-06-20 16:36 | OP ---
DATE OF PROCEDURE: 06/20/2019 PREOPERATIVE DIAGNOSES: Right ureteral stone, it is in the junction of the upper 2/3rds and the lower third of the right ureter. PROCEDURES PERFORMED: Cysto, discontinue right stent, right rigid use ureteroscopy with laser lithotripsy and right rigid stone retrieval, and right stent replacement. ANESTHETIC: General. EBL: Minimal. DRAINS PLACED: A 6 x 24 Polaris double-J stent. The string was not left intact. FINDINGS: The distal third of the ureters was normal. The stone was impacted at the junction of the distal third and the proximal 2/3rds. Ureter was very irregular around it. It was lateral to the guidewire. We used a small caliber holmium laser fiber to break this into small pieces that we were able to basket out. As we had finished getting this treated, looking at it, you could see the guidewire that had been placed through the stent at the start of the case was not in the same lumen as where the stone was suggesting either that guidewire had been submucosal just adjacent to the stone or that the stone itself had become impact enough that was actually outside the lumen. There is certainly a very irregular ureter in this region. We could not get our small caliber rigid ureteroscope to follow the guidewire through this location. It was very, very narrowed here. We placed a second guidewire across, where the stone was as this did connect to the ureter just proximal to this and this proximal meaning just a couple of millimeters. Then having a guidewire up on both of these locations, we were able to use the laser just connect them by this opening up a couple millimeters of tissue in length and probably no more than a millimeter in thickness, where these two had . Once this was completed, then we placed the stent across the guidewire. Guidewire that had that which was now inside of which was now completely inside of these lumens as they had been connected as one. DESCRIPTION OF PROCEDURE: Obtained written and verbal consent from the patient, after receiving IV antibiotics, she was taken to the operating suite. She was placed in a supine position on the treatment table. PlexiPulses were placed on her lower extremities and turned on. She was given a general anesthetic and oral obturator intubation, placed in the dorsal lithotomy position, sterilely prepped and draped. Cystoscopy was performed with a 22-Telugu sheath, this was well lubricated, passed under direct vision through the female urethra into the urinary bladder with the aid of a 30-degree lens and video camera and monitor. The scope was passed into the bladder. The bladder was filled and emptied number times. Distal end of double-J stent was grasped and brought out through the urethral meatus. A guidewire was fed up through this and the stent was removed leaving guidewire in place. We then brought in a small caliber graduated rigid ureteroscope and passed through the female urethra with aid of video camera and monitor, passed up the right ureter to the level of stone. There was a lot of inflammatory tissue, inflammatory changes noted in this region, but then stone was well visualized, brought in a small caliber holmium laser fiber. The stone was lateral to the guidewire. We broke the stone up into small pieces and as they fell out, they moved distally down the ureter. Once the stone was completely broken up, then we went ahead and basketed out these pieces dropping them in the bladder. We then reinspected this region and at this point, noted that the guidewire that had been placed through the stent at the beginning of the case was in a different lumen than the stone had been in the lumen. The stone had been actually did connect to the proximal ureter. There was a just tiny bit of tissue probably a couple millimeter in length and maybe a millimeter in thickness that these two lumens there. We went ahead and brought in the laser fiber and we just opened up this little bit of tissue that between these 2-0 has to take it from two lumens to one lumen. We tried to initially just go across this lumen that the guidewire was in by backloading the guidewire through the ureteroscope. We will get up to this point, which is very tight. I am not sure whether the stone itself was just outside of the ureter on the side, where it had been impacted, which would be the lateral part of the ureteral orifice or if the guidewire that had been placed through the stent at the beginning of this case was just slightly submucosal. When we passed this wire a couple weeks ago and put the stent in, it was very difficult to get by the stone. The stone was very tight and impacted, so it could have been one or the other. In any event, once this was completed and we had joined these two lumens, we left one guidewire across it and then brought in a 5-Telugu Pollack catheter passed over the guidewire up into the renal pelvis, removed the guidewire injected about 20 mL of contrast. She is mildly hydronephrotic, but the urine went all the way down the ureter into the bladder and there was no extravasation noted. We then went ahead and replaced the guidewire through the open-ended catheter, removed that catheter and passed a 6 x 24 Polaris double-J stent over the guidewire pushing up easily into place and set the proximal end coiled in the renal pelvis and the distal end coiled in the bladder when the wire was removed. The stones had been retrieved from the ureter with a Nitinol basket. I had just been dropped into the bladder. We will let her pass those on her own at home. We sent stones off and on her before, so we do not need to collect these for stone analysis. She at this point was awakened and extubated, taken by stretcher to recovery room. Job ID: [id number]
== END 2019-06-20 16:55 | disposition home or self-care (01) ==
LOC: SDC 10:54
PROVIDERS: ATTEND Urology
PROC: 0TF68ZZ Fragmentation in Right Ureter, Via Natural or Artificial Opening Endoscopic (ICD-10-PCS; principal; 2019-06-20)
PROC: 0T768DZ Dilation of Right Ureter with Intraluminal Device, Via Natural or Artificial Opening Endoscopic (ICD-10-PCS; principal; 2019-06-20)
DX: N20.1 Calculus of ureter (principal); E11.9 Type 2 diabetes mellitus without complications; F41.9 Anxiety disorder, unspecified; Z88.8 Allergy status to other drugs, medicaments and biological substances; Z88.2 Allergy status to sulfonamides; Z79.84 Long term (current) use of oral hypoglycemic drugs
CPT/HCPCS: 36415; 74018; 74420; 80048; 85025; C1758; J0690; J1100; J2250; J2270; J2405; J2704; J3010

== ENCOUNTER 2020-06-12 09:58 | Outpatient (CLI) | payer BC ==
--- NOTE | 2020-06-12 13:48 | RAD ---
LUMBAR SPINE SERIES 4 VIEWS: Date: 06/12/2020 HISTORY: Back and bilateral leg pain. FINDINGS: Vertebral bodies are normal in height. Severe disc narrowing and vacuum disc phenomenon at L5-S1. No spondylolisthesis. No abnormal motion on the flexion or extension views. Pedicles are intact. IMPRESSION: Marked degenerative disc narrowing at L5-S1. POS: TIKA
--- NOTE | 2020-06-12 14:41 | MRI ---
MRI LUMBAR SPINE NONCONTRAST: DATE: 06/12/20 HISTORY: 45-year-old female with M54.16 lumbar radiculopathy, and low back pain. COMPARISON: 09/16/18 FINDINGS: There are five lumbar type vertebrae. Vertebral body heights are maintained. Conus medullaris termina robin at L2. No high grade scoliosis. All levels from T12-L1 through L3-4, are normal. L4-5: disc desiccation and mild disc space narrowing. Superimposed on a mild diffuse disc bulge, ther e is a central and bilateral paracentral broad based shallow disc protrusion which minimally indents the ventral aspect of the thecal sac and abuts the right L5 nerve root without displacing it. This do es not cause significant central spinal canal stenosis. There is no significant neural foraminal sten osis. Degenerative facet changes are mild. L5-S1: Moderate to severe disc space narrowing. Multifocal end plate irregularities. Prominent Modic type I end plate marrow edema. Slight grade I anterolisthesis of L5 on S1. Diffuse disc bulge. Mild b ilateral facet DJD. No central spinal canal stenosis. Central and bilateral paracentral broad based s hallow disc herniation abuts the ventral surface of the thecal sac and abuts the bilateral S1 nerve r oots at the lateral recesses without significant displacing them and without causing high grade centr al spinal canal stenosis. The size of this shallow disc herniation may or may not be slightly larger than on the previous MRI. Bilateral moderate neural foraminal stenosis, right greater than left, has not significantly changed. There is distortion of the exiting right L5 nerve root in the right neural foramen by the right lateral and far lateral chronic disc/osteophyte complex. This has not changed. IMPRESSION: 1. Somewhat severe degenerative disc disease at L5-S1, where there is mild grade I spondylolisth esis and moderate bilateral neural foraminal stenosis, right worse than left. 2. Mild to moderate degenerative disc disease at L4-5. 3. All the rest of the levels are normal. 4. No central spinal canal stenosis at any level. OBIE Beavers POS: LAMINEC
== END 2020-06-12 09:59 | disposition home or self-care (01) ==
LOC: BICMRI 09:58
PROVIDERS: ATTEND Surgery
DX: M48.061 Spinal stenosis, lumbar region without neurogenic claudication (principal); M51.16 Intervertebral disc disorders with radiculopathy, lumbar region; M51.37 Other intervertebral disc degeneration, lumbosacral region; M48.07 Spinal stenosis, lumbosacral region; M43.17 Spondylolisthesis, lumbosacral region
CPT/HCPCS: 72110; 72148

== ENCOUNTER 2025-07-28 20:47 | Emergency (ER) | payer BC ==
[2025-07-28 22:14] LABS: #Basophils 0.03 10x3/uL (0.0-0.2); #Eosinophils 0.29 10x3/uL (0.0-0.7); #Monocytes 0.48 10x3/uL (0.11-0.59); #Neutrophils 3.43 10x3/uL (1.40-6.50); %Basophils 0.5 % (0.0-1.0); %Eosinophils 4.7 % (0.0-10.0); %Lymphocytes 30.7 % (21.0-51.0); %Monocytes 7.8 % (0.0-10.0); %Neutrophils 56.1 % (42.0-75.0); Hematocrit 41.1 % (36.0-47.0); Hemoglobin 13.3 g/dL (12.0-16.0); Mean Corpuscular Hemoglobin 28.7 pg (27.0-31.0); Mean Corpuscular Volume 88.6 fL (78.0-98.0); Platelet Count 230 10x3/uL (130-400); Red Blood Cell (RBC) Count 4.64 mill/uL (4.20-5.40); White Blood Cell (WBC) Count 6.12 10x3/uL (4.8-10.8)
[2025-07-28 22:27] LABS: BHCG - Serum Negative (NEGATIVE); Pregs Control Background? CLEAR/WHITE (CLR/WHITE); Pregs Control Bar Appear? YES (CONTROL BAR)
[2025-07-28 22:28] LABS: ALT (SGPT) 22 U/L (Less than 34); AST (SGOT) 32 U/L (11-34); Albumin 3.8 g/dL (3.1-4.5); Alkaline Phosphatase 66 U/L (40-110); Anion Gap 11 mmol/L (10-20); BUN (Urea Nitrogen) 12 mg/dL (7.0-18.7); Bilirubin, Total 0.2 mg/dL (0.3-1.2); Calc. Creatinine Clearance 0 mL/min (70-130); Calcium 9.0 mg/dL (7.8-10.44); Carbon Dioxide 26 mmol/L (22-29); Chloride 107 mmol/L (98-107); Globulin 3.0 g/dL (2.4-3.5); Glucose 123 mg/dL (70-105); Potassium 3.3 mmol/L (3.5-5.1); Sodium 141 mmol/L (136-145)
[2025-07-28 22:32] LABS: INR-International Normal Ratio 1.1; PTT 33.8 sec (22.9-36.1); Prothrombin Time 14.5 sec (12.0-14.7)
[2025-07-28 22:43] LABS: D-Dimer Test Less than 0.27 mcg/mL (0.27-0.43)
== END 2025-07-28 23:29 | disposition home or self-care (01) ==
LOC: ERS 20:47
DX: R07.9 Chest pain, unspecified (principal); E03.9 Hypothyroidism, unspecified; E11.9 Type 2 diabetes mellitus without complications
CPT/HCPCS: 36415; 71045; 80053; 84484; 84703; 85025; 85379; 85610; 85730; 93005